=== PATIENT | female | born 1980 | race Caucasian/White ===

== ENCOUNTER 2016-01-11 11:15 | Outpatient (RCR) | payer BC ==
[2016-01-04 11:28] VITALS: BP_SYST 144; BP_SYST 145; BP_DIAS 92; BP_DIAS 95
[2016-01-04 11:54] VITALS: BP 149/83
[2016-01-04 12:09] VITALS: BP 156/87
[2016-01-04 12:24] VITALS: BP 166/87
[2016-01-04 12:30] VITALS: BP 145/92
--- NOTE | 2016-01-04 14:43 | Diagnostic Imaging Report ---
OB ultrasound. Biophysical profile. INDICATION: Chronic hypertension. FINDINGS: heart rate is 119 beats per minute. Total SHANE is 10.1 cm. The position is cephalic. The placenta is anterior with no placenta previa. Biophysical profile parameters are all within normal limits. IMPRESSION: Biophysical profile score is 8 out of 8. Dictated by: Dictated on workstation # [id number]
[2016-01-08 12:20] VITALS: BP 146/80
--- NOTE | 2016-01-08 12:56 | Diagnostic Imaging Report ---
OB ultrasound/biophysical profile. INDICATION: Preeclampsia. FINDINGS: heart rate is 167 beats per minute. position is cephalic. Amniotic fluid index is 4.5 cm compared to 10.1 cm on 01/04/16. Biophysical profile parameters are within normal limits. The placenta is anterior with no placenta previa. IMPRESSION: Biophysical profile score is 8/8. There is, however, interval decrease in amniotic fluid index to 4.5 cm at this time, oligohydramnios. The findings were given to OB nurse taking care of the patient by lead nuclear medicine technologist Katt. Dictated by: Dictated on workstation # [id number]
[~2016-01-11] VITALS: Ht 165.1 cm; Wt 113.4 kg
[2016-01-11] VITALS (9 sets, daily range): BP systolic 131–181; BP diastolic 72–99
[~2016-01-11 11:15] MED LIST: Ibuprofen PO; MULT-501 PO
[2016-01-11 12:52] LABS: BASOPHILS % (AUTO) 0 % (0-10); EOSINOPHILS # (AUTO) 0.1 10^3/uL (0.0-0.3); EOSINOPHILS % (AUTO) 1 % (0-10); LYMPHOCYTES # (AUTO) 1.3 X 10^3 (1.0-4.0); LYMPHOCYTES % (AUTO) 16 % (12-44); MEAN CORPUSCULAR HEMOGLOBIN 31 PG (25-34); MEAN CORPUSCULAR HGB CONC 34 G/DL (32-36); MEAN CORPUSCULAR VOLUME 93 FL (80-99); MEAN PLATELET VOLUME 10.4 FL (7.4-10.4); MONOCYTES # (AUTO) 0.7 X 10^3 (0.0-1.0); MONOCYTES % (AUTO) 9 % (0-12); NEUTROPHILS % (AUTO) 74 % (42-75); PLATELET COUNT 224 10^3/uL (130-400); RED BLOOD COUNT 3.51 10^6/uL (4.35-5.85); RED CELL DISTRIBUTION WIDTH 14.6 % (10.0-14.5)
[2016-01-11 13:10] LABS: ALANINE AMINOTRANSFERASE 15 U/L (0-55); ALBUMIN 3.1 G/DL (3.2-4.5); ANION GAP 7 MMOL/L (5-14); ASPARTATE AMINO TRANSFERASE 19 U/L (5-34); BILIRUBIN,TOTAL 0.8 MG/DL (0.1-1.0); BLOOD UREA NITROGEN 9 MG/DL (7-18); BUN/CREATININE RATIO 15; CALCIUM 8.9 MG/DL (8.5-10.1); CARBON DIOXIDE 20 MMOL/L (21-32); CHLORIDE 109 MMOL/L (98-107); CREATININE SERUM 0.62 MG/DL (0.60-1.30); GFR ESTIMATED > 60; GLUCOSE 85 MG/DL (70-105); LACTATE DEHYDROGENASE 163 U/L (125-220); POTASSIUM 3.8 MMOL/L (3.6-5.0); SODIUM 136 MMOL/L (135-145); TOTAL PROTEIN 5.7 G/DL (6.4-8.2); URIC ACID 5.5 MG/DL (2.6-7.2)
--- NOTE | 2016-01-11 15:01 | Diagnostic Imaging Report ---
OB ultrasound. INDICATION: Biophysical profile. FINDINGS: heart rate is 140 beats minute. The presentation is cephalic. Total SHANE is 7 cm. The placenta is anterior with no placenta previa. The cervix appears long and closed. Biophysical profile parameters are within normal limits. IMPRESSION: Total biophysical profile of 8 out of 8. Amniotic fluid index is near the lower limits of normal at 7 cm. Dictated by: Dictated on workstation # [id number]
[2016-01-14 15:32] VITALS: BP 183/102
[2016-01-14 15:40] VITALS: BP 148/88
[2016-01-14 15:50] VITALS: BP 152/92
[2016-01-14 16:00] VITALS: BP 137/81
[2016-01-14 16:25] VITALS: BP 131/75
== END 2016-04-03 | disposition home or self-care (01) ==
LOC: RAD 11:15
PROVIDERS: ATTEND Family Medicine
DX: O10.913 Unspecified pre-existing hypertension complicating pregnancy, third trimester (principal); Z3A.35 35 weeks gestation of pregnancy
CPT/HCPCS: 36415; 59025; 76819; 80053; 83615; 84550; 85025

== ENCOUNTER → 2020-07-23 | Outpatient (CLI) | payer OTHER ==
--- NOTE | 2020-07-24 09:34 | Diagnostic Imaging Report ---
INDICATION: Routine screening. No prior mammograms are available for comparison. 2-D and 3-D bilateral screening mammography was performed with CAD. Scattered fibroglandular densities are identified bilaterally. No mass or malignant-appearing microcalcifications are seen. Axillae are unremarkable. IMPRESSION: BI-RADS Category 1 No mammographic features suspicious for malignancy are identified. ACR BI-RADS Category 1: Negative. Result letter will be mailed to the patient. Note: At least 10% of breast cancer is not imaged by mammography. Dictated by: Dictated on workstation # [id number]
== END ==
LOC: RAD 14:42
PROVIDERS: ATTEND Nurse Practitioner Family
DX: Z12.31 Encounter for screening mammogram for malignant neoplasm of breast (principal)
CPT/HCPCS: 77063; 77067

== ENCOUNTER 2021-10-25 15:42 | Inpatient (IN) | payer MEDICAID ==
[2021-10-25] VITALS (49 sets, daily range): BP systolic 135–192; BP diastolic 69–119
[~2021-10-25] VITALS: Ht 164 cm; Wt 119.8 kg
[2021-10-25 16:26] LABS: HEMATOCRIT 31 % (35-52); HEMOGLOBIN 10.7 g/dL (11.5-16.0); MEAN CORPUSCULAR HEMOGLOBIN 31 pg (25-34); MEAN CORPUSCULAR HGB CONC 34 g/dL (32-36); MEAN CORPUSCULAR VOLUME 90 fL (80-99); MEAN PLATELET VOLUME 9.7 fL (9.0-12.2); PLATELET COUNT 268 10^3/uL (130-400); WHITE BLOOD COUNT 9.5 10^3/uL (4.3-11.0)
[2021-10-25 16:37] LABS: ALBUMIN 3.3 GM/DL (3.2-4.5); POTASSIUM 4.1 MMOL/L (3.6-5.0)
[2021-10-25 16:39] LABS: CALCIUM 9.5 MG/DL (8.5-10.1)
[2021-10-25 16:40] LABS: TOTAL PROTEIN 6.3 GM/DL (6.4-8.2)
[2021-10-25 16:42] LABS: BILIRUBIN,TOTAL 0.8 MG/DL (0.1-1.0)
[2021-10-25 16:43] LABS: CREATININE SERUM 0.75 MG/DL (0.60-1.30)
[2021-10-25 16:46] LABS: URIC ACID 7.3 MG/DL (2.6-7.2)
[2021-10-25] MEDS ORDERED: BETAMETHASONE ACE/NA PHOS 6 MG/ML (CELESTONE SOLUSPAN) ONE (18:13)
[2021-10-25] MEDS ORDERED: TERBUTALINE INJ 1 MG/ML (BRETHINE) AMP SC PRN (18:15)
[2021-10-25] MEDS ORDERED: hydrALAZINE (APESOLINE) 20 MG/ML VIAL IV PRN (18:15)
[2021-10-25] MEDS ORDERED: CALCIUM GLUC. 10% 4.65 MEQ/10 ML VIAL IV PRN (18:15)
[2021-10-25] MEDS ORDERED: MAGNESIUM 4 GM/100 ML IVPB 100 ML IV ONE (18:15)
[2021-10-25] MEDS ORDERED: BETAMETHASONE ACE/NA PHOS 6 MG/ML (CELESTONE SOLUSPAN) IM SCH (18:30)
--- NOTE | 2021-10-25 18:38 | History & Physical-OB ---
OB - Chief Complaint & HPI Date/Time Date of Admission: Date of Admission: 10/25/2021 Date seen by a Provider: Oct 25, 2021 Time Seen by a Provider: 17:30 Chief Complaint/History OB-Reason for Admission/Chief: Obstetrical Complication Hx : 3 Hx Para: 2 Expected Date of Delivery: Nov 29, 2021 Gestational Age in Weeks: 35 Gestational Age in Days: 0 Indication for induction: medical complication Other reason for admission: 41 yo at 35w0d with complicated by chronic hypertension, loss of twin in first trimester, positive antibody screen at low titer, untypeable being followed q4 weeks, previous child with craniosynostosis and advanced maternal age (declined genetic screening) 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 At her Ob visit at the end of last week, she had new onset swelling so preeclampsia labs were rechecked and results noted today showed uric acid slightly elevated and urine protein/creatinine ratio up to 0.6 (from 0.2 09/21/21). Pt called and notified of results by nurse and when asking about symptoms, she did admit headache, nausea and swelling and she checked her BP at home and it was 169/105, so she was directed to the hospital. Discussed with on-call for MFM and they recommended proceeding with delivery given severe level blood pressure and new proteinuria. On arrival to the hospital she stated she has persisted with headache, denies vision changes or upper abdominal pain, and she notes she had swelling of hands, feet and face yesterday that is not quite as bad today. Her repeat labs today showed persistent mild uric acid elevation and urine pr/cr now above 1. Her initial blood pressure on arrival was above 160 systolic, but down to below 160 on repeat. She continued to have intermittent blood pressure above 160 systolic that have not persisted more than 15 minutes so she has not yet received IV treatment. She had her labetalol am dose, normally takes her nifedipine in the evening with her evening labetalol dose and has not had those yet. Fetus was breech on last few BPPs, however bedside US today shows vertex. She had preeclampsia with both prior pregnancies, induced at 38 and then 37 weeks with those, has been on aspirin for preeclampsia prevention in this . History of Labs O neg, antibody POSITIVE but at low level and untypeable, RPR reactive but TPPA neg, HIV/HepB neg. GC/chlamydia neg. RI. 1 hour glucola neg, repeat 1 hr 10/22 negative again done due to LGA on recent US. Allergies and Home Medications Allergies Coded Allergies: No Known Drug Allergies (Unverified , 09/11/13) Patient Home Medication List Home Medication List Reviewed: Yes Aspirin (Low Dose Aspirin EC) 81 Mg Tablet.dr, 1 TAB PO DAILY, (Reported) Entered as Reported by: JODY VALERA on 10/25/211839 Last Action: New Order Labetalol HCl (Labetalol HCl) 300 Mg Tablet, 2 TAB PO BID, (Reported) Entered as Reported by: JODY VALERA on 10/25/211839 Last Action: New Order Multivitamins (Children's Chewable Complete) 1 Each Tab.chew, 2 EACH PO DAILY, (Reported) Entered as Reported by: YAIR SAMUELS on 09/11/13 170 Nifedipine (Nifedipine ER) 30 Mg Tab.er.24, 1 TAB PO DAILY, (Reported) Entered as Reported by: JODY VALERA on 10/25/211839 Last Action: New Order OB - History Hx of Present Care: Yes Obstetrical Complications: Pre-eclampsia Medical Complications: Cardiovascular (HTN) Information Induced Hypertension: Yes (chronic HTN) Maternal Gestational Diabetes: No Hemorrhage: No Obstetrical History Hx : 3 Hx Para: 2 Hx # Term Pregnancies: 2 Hx # Pregnancies: 0 Number of Living Children: 0 Hx Multiple Gestation: Yes (twin gestation with current with loss of one twin prior to 8 wk) Hx Ectopic : No Hx Stillbirth: No Hx Complication: Yes Hx Induced Hypertens: Yes Hx Maternal Gestational Diabet: No Hx Hemorrhage: No Delivery History Hx Dystocia: No Hx Forceps Assisted Delivery: No Hx Vacuum Extraction Assisted: No Hx Placenta Abnormality: No Hx Distress: No Hx Large For Gestational Age I: No Hx Small for Gestational Age I: No Hx Section: No Hx Vaginal Delivery Post C-Sec: No Hx Blood Disorders: No Adverse Rxn to Tranfusion: No Patient Past Medical History PMHx: Chronic hypertension Rh negative Sleep apnea Social History/Family History Alcohol Use: Denies Use Recreational Drug Use: No Smoking Cessation: Never smoker Immunizations Tetanus Booster (TDap): Less than 5yrs Rubella: immune RPR/VDRL: Negative GBS Status: Negative HBsAG: Negative OB - Admission Exam Physical Exam Vitals: Vital Signs 10/25/21 17:22 Temp 36.1 Pulse 82 Resp 18 Pulse Ox 98 O2 Delivery Room Air HEENT: NCAT Heart: Rhythm Normal Lungs: Clear Abdomen: Non tender Extremities: Edema Reflexes: Normal Cervical Dilatation: 1cm Effacement: 0% Station: -3 Membranes: Intact Heart Rate: 120's Decelerations: No Decelerations Short Term Variability: Present Contractions on Admission: None Weber Scoring Tool (Modified) Dilation (cm): 1-2cm (1) Effacement (%): 0-30% (0) Descent/Station: -3 (0) Cervix Consistency: Soft (2) Cervix Position: Middle/Mid-Position (1) Add 1 point for: Pre-eclampsia (1), Each previous vaginal delivery (1) (2) Weber Score: 6 Labs Laboratory Tests Test 10/25/21 15:45 10/25/21 16:15 Range/Units Urine Protein 46 H 6-12 MG/DL Urine Creatinine 41 30-125 MG/DL Urine Protein/Creatinine Ratio 1.12 White Blood Count 9.5 4.3-11.0 10^3/uL Red Blood Count 3.50 L 3.80-5.11 10^6/uL Hemoglobin 10.7 L 11.5-16.0 g/dL Hematocrit 31 L 35-52 % Mean Corpuscular Volume 90 80-99 fL Mean Corpuscular Hemoglobin 31 25-34 pg Mean Corpuscular Hemoglobin Concent 34 32-36 g/dL Red Cell Distribution Width 14.5 10.0-14.5 % Platelet Count 268 130-400 10^3/uL Mean Platelet Volume 9.7 9.0-12.2 fL Sodium Level 136 135-145 MMOL/L Potassium Level 4.1 3.6-5.0 MMOL/L Chloride Level 106 98-107 MMOL/L Carbon Dioxide Level 18 L 21-32 MMOL/L Anion Gap 12 5-14 MMOL/L Blood Urea Nitrogen 13 7-18 MG/DL Creatinine 0.75 0.60-1.30 MG/DL Estimat Glomerular Filtration Rate 103 BUN/Creatinine Ratio 17 Glucose Level 83 70-105 MG/DL Uric Acid 7.3 H 2.6-7.2 MG/DL Calcium Level 9.5 8.5-10.1 MG/DL Corrected Calcium 10.1 8.5-10.1 MG/DL Total Bilirubin 0.8 0.1-1.0 MG/DL Aspartate Amino Transf (AST/SGOT) 21 5-34 U/L Alanine Aminotransferase (ALT/SGPT) 16 0-55 U/L Alkaline Phosphatase 112 40-136 U/L Lactate Dehydrogenase 145 125-220 U/L Total Protein 6.3 L 6.4-8.2 GM/DL Albumin 3.3 3.2-4.5 GM/DL OB - Assessment/Plan/Diagnosis Assessment Admission Dx Preeclampsia with severe features Admission Status: Inpatient Order (span 2 midnights) Reason for Inpatient Admission: Induction, labor, delivery and course Plan Problems: (1) Severe preeclampsia Assessment & Plan: Induction of labor with cytotec cervical ripening, magnesium ordered for seizure prophylais, labetalol IV as needed with hydralazine additionally ordered if needed for severe level HTN. Severe features due to HTN, but has normal renal function, platelets and LFTs. Qualifiers: Qualified Codes: O14.13 - Severe pre-eclampsia, third trimester (2) 35 weeks gestation of Assessment & Plan: Betamethasone now, will repeat in 24 if not yet delivered. Ampicillin for GBS unknown status and . (3) Chronic hypertension affecting (4) Rh negative status during Assessment & Plan: With positive but untypeable and low titer antibody repeatedly outpatient, repeat type and screen on admit. (5) Advanced maternal age (AMA) in Assessment & Plan: Declined genetic screening in JODY VALERA MD Oct 25, 2021 18:38
[2021-10-25] MEDS ORDERED: NIFE-25 PO (18:40)
[2021-10-25] MEDS ORDERED: ASPI81TA16 PO (18:40)
[2021-10-25] MEDS ORDERED: LABE300T2 PO (18:40)
[2021-10-25] MEDS ORDERED: NS IV 1000 ML 1,000 ML ONE (19:53)
[2021-10-25] MEDS: NS IV 1000 ML 1,000 ML IV SCH (20:03)
[2021-10-25] MEDS: LABETALOL HCL 100 MG/20 ML VIAL IV PRN ×3 (20:04→20:47)
[2021-10-25] MEDS: MAGNESIUM SULFATE DRIP 500 ML IV SCH (20:43)
[2021-10-25] MEDS ORDERED: LABETALOL HCL 20 MG/4 ML VIAL ONE ×2 (20:43→21:09)
[2021-10-25] MEDS ORDERED: LABETALOL HCL 20 MG/4 ML VIAL IV ONE ×2 (21:00→21:45)
[2021-10-25] MEDS ORDERED: fentaNYL 2 mcg/ml BUPIVA 0.125 100 ML ONE (23:07)
[2021-10-25] MEDS ORDERED: fentaNYL INJ 100 MCG/2 ML AMP ONE (23:12)
[2021-10-25] MEDS ORDERED: BUPIVACAINE 0.25% 30 ML (SENSORCAINE) VIAL ONE (23:12)
[2021-10-25] MEDS ORDERED: ONDANSETRON 4 MG/2 ML (SDV) Z0FRAN IV PRN (23:45)
[2021-10-25] MEDS ORDERED: LACTATED RINGERS 1,000 ML IV ONE ×2 (23:45)
[2021-10-25] MEDS ORDERED: fentaNYL 2 mcg/ml BUPIVA 0.125 100 ML EPI SCH (23:45)
[2021-10-25] MEDS ORDERED: NALOXONE 0.4 MG/ML 1 ML (NARCAN) VIAL IV PRN (23:45)
[2021-10-25] MEDS ORDERED: fentaNYL INJ 100 MCG/2 ML AMP INJ ONE (23:45)
[2021-10-26] VITALS (62 sets, daily range): BP systolic 115–194; BP diastolic 69–101
[2021-10-26] MEDS ORDERED: AMPICILLIN FOR IV USE 2,000 MG in NS (IVPB) 50 ML IV ONE (02:44)
[2021-10-26] MEDS ORDERED: hydrALAZINE (APESOLINE) 20 MG/ML VIAL IV ONE (02:55)
[2021-10-26] MEDS ORDERED: hydrALAZINE (APESOLINE) 20 MG/ML VIAL ONE (03:13)
[2021-10-26] MEDS ORDERED: FAMOTIDINE 20MG/2ML IV (PEPCID) ONE (06:09)
[2021-10-26] MEDS ORDERED: METOCLOPRAMIDE INJ 10 MG/2 ML (REGLAN) ONE (06:09)
[2021-10-26] MEDS ORDERED: CITRIC ACID/SOB CIT (BICITRA) 30 ML UDC ONE (06:09)
[2021-10-26] MEDS ORDERED: ceFAZolin INJECTION 2,000 MG in NS (IVPB) 50 ML IV SCH (06:15)
--- NOTE | 2021-10-26 06:17 | Labor Progress Note ---
Labor Progress Note Labor Progress Note Date Seen by Provider: Oct 26, 2021 Time Seen by Provider: 05:55 Subjective: Pt is nauseated but denies other concerns. Objective: Cervical exam: 3 Consistency: soft Position: mid Presentation: vertex heart tones: 105 beats per minute, moderate variability, no decelerations Tocometer: 1-2 ctx/10 minutes Assessment/Plan: Magdalena Pressley is a 41 /Para 3 / 2,Gestational Age (wks)35+1 here for IOL for preeclampsia with severe features. After her first dose of cytotec, at next check presenting part was not palpable and bedside US showed transverse position, so no further cytotec was given and plan for this morning. Since admission she has received 220 mg IV labetalol for systolic blood pressures above 160 and during the night she did require 2 doses of hydralazine for systolic blood pressures greater than 160. heart rate baseline has been around 100 to 110 for a significant portion of the night but has continued to have variability and no decelerations, suspect this may be related to her labetalol. At this time, US shows vertex again, however, given the unstable lie (fetus was breech last several weeks, vertex last night, then transverse and now vertex again) plan to proceed with this morning. CEFM Anesthesia: Epidural Discussed with Dr. Diaz Product Scientist on-call and OR team called. Vitals - Labs Vital Signs - I&O Vital Signs Date Time Temp Pulse Resp B/P (MAP) Pulse Ox O2 Delivery O2 Flow Rate FiO2 10/26/21 05:53 Room Air 10/26/21 05:10 88 140/85 (103) Room Air 10/26/21 05:07 94 20 138/88 (105) 10/26/21 04:57 36.6 10/26/21 04:56 94 138/88 (105) Room Air 10/26/21 04:41 93 135/80 (98) Room Air 10/26/21 04:27 97 145/87 (106) 96 Room Air 10/26/21 04:15 98 22 147/85 (105) 10/26/21 04:11 98 147/85 (105) Room Air 10/26/21 03:56 99 144/84 (104) Room Air 10/26/21 03:43 99 142/75 (97) 97 Room Air 10/26/21 03:40 100 154/87 (109) 98 Room Air 10/26/21 03:26 88 159/83 (108) 99 Room Air 10/26/21 03:15 87 20 151/81 (104) 10/26/21 03:11 76 151/81 (104) Non Rebreather 15.00 10/26/21 03:07 87 168/88 (114) 100 Non Rebreather 15.00 10/26/21 02:55 77 171/91 (117) Non Rebreather 15.00 10/26/21 02:53 91 172/91 (118) 100 Non Rebreather 15.00 10/26/21 02:41 67 188/95 (126) Non Rebreather 15.00 10/26/21 02:37 66 192/101 (131) 100 Non Rebreather 15.00 10/26/21 02:28 71 194/98 (130) 100 Non Rebreather 15.00 10/26/21 02:22 79 191/97 (128) 100 Non Rebreather 15.00 10/26/21 02:15 75 18 186/96 (126) 10/26/21 02:11 75 186/96 (126) 100 Non Rebreather 15.00 10/26/21 01:54 85 179/96 (123) 95 Non Rebreather 15.00 10/26/21 01:41 79 175/94 (121) 94 Room Air 10/26/21 01:26 75 176/94 (121) Room Air 10/26/21 01:25 76 175/95 (121) Room Air 10/26/21 01:15 72 18 185/91 (122) 10/26/21 01:11 72 185/91 (122) 96 Room Air 10/26/21 01:00 71 10/26/21 00:55 74 165/97 (119) 95 Room Air 10/26/21 00:42 64 133/69 (90) Room Air 10/26/21 00:27 70 121/69 (86) Room Air 10/26/21 00:15 70 121/69 (86) 10/26/21 00:10 74 168/90 (116) 97 Room Air 10/26/21 00:01 74 161/81 (107) Room Air 10/25/21 23:54 74 172/84 (113) 96 Room Air 10/25/21 23:51 72 168/93 (118) 94 Room Air 10/25/21 23:49 76 166/93 (117) 98 Room Air 10/25/21 23:45 75 172/98 (122) Room Air 10/25/21 23:42 77 169/92 (117) 97 Room Air 10/25/21 23:39 85 166/110 (128) Room Air 10/25/21 23:36 80 175/102 (126) Room Air 10/25/21 23:34 81 165/96 (119) 98 Room Air 10/25/21 23:31 81 167/98 (121) Room Air 10/25/21 23:28 79 171/94 (119) 98 Room Air 10/25/21 23:24 77 168/96 (120) Room Air 10/25/21 23:21 77 187/97 (127) 98 Room Air 10/25/21 23:19 84 186/93 (124) 98 Room Air 10/25/21 23:15 84 20 186/93 (124) 10/25/21 23:07 74 157/90 (112) 97 Room Air 10/25/21 22:52 80 163/93 (116) 97 Room Air 10/25/21 22:37 81 161/88 (112) 94 Room Air 10/25/21 22:27 80 166/89 (114) 96 Room Air 10/25/21 22:22 79 164/85 (111) 97 Room Air 10/25/21 22:15 78 20 163/82 (109) 10/25/21 22:14 78 163/82 (109) 94 Room Air 10/25/21 21:48 36.3 79 18 157/74 (101) 94 Room Air 10/25/21 21:44 78 139/69 (92) 94 Room Air 10/25/21 21:40 74 20 164/81 (108) 92 Room Air 10/25/21 21:31 81 10/25/21 21:15 87 18 164/101 (122) 10/25/21 21:05 87 164/101 (122) 97 Room Air 10/25/21 20:56 79 167/83 (111) 97 Room Air 10/25/21 20:52 171/94 (119) 10/25/21 20:50 80 98 Room Air 10/25/21 20:34 80 184/95 (124) 98 Room Air 10/25/21 20:32 77 171/93 (119) 94 Room Air 10/25/21 20:30 85 176/92 (120) 95 Room Air 10/25/21 20:20 77 18 185/98 (127) 96 Room Air 10/25/21 20:16 35.4 69 22 178/94 (122) 98 Room Air 10/25/21 20:15 69 22 178/94 (122) 10/25/21 20:09 72 20 192/100 (130) 97 Room Air 10/25/21 20:03 68 191/98 (129) 10/25/21 19:39 71 18 184/95 (124) 10/25/21 19:04 77 16 162/93 (116) 10/25/21 17:32 74 18 170/87 (114) 10/25/21 17:22 36.1 82 18 98 Room Air 10/25/21 17:18 65 18 158/119 (132) 10/25/21 17:02 72 18 139/84 (102) 10/25/21 16:50 76 18 150/89 (109) 10/25/21 16:33 78 18 135/79 (97) 10/25/21 16:20 78 18 163/90 (114) 10/25/21 16:02 75 18 149/77 (101) 10/25/21 15:51 85 18 160/80 (106) 10/25/21 15:45 36.1 82 18 178/95 (122) 97 I & O 10/26/21 07:00 Intake Total 664.8 ml Balance 664.8 ml Labs Laboratory Tests 10/25/21 15:45: Urine Protein 46H, Urine Creatinine 41, Urine Protein/Creatinine Ratio 1.12 10/25/21 16:15: White Blood Count 9.5, Red Blood Count 3.50L, Hemoglobin 10.7L, Hematocrit 31L, Mean Corpuscular Volume 90, Mean Corpuscular Hemoglobin 31, Mean Corpuscular Hem oglobin Concent 34, Red Cell Distribution Width 14.5, Platelet Count 268, Mean Platelet Volume 9.7, Sodium Level 136, Potassium Level 4.1, Chloride Level 106, Carbon Dioxide Level 18L, Anion Gap 12, Blood Urea Nitrogen 13, Creatinine 0.75, Estimat Glomerular Filtration Rate 103, BUN/Creatinine Ratio 17, Glucose Level 83, Uric Acid 7.3H, Calcium Level 9.5, Corrected Calcium 10.1, Total Bilirubin 0.8, Aspartate Amino Transf (AST/SGOT) 21, Alanine Aminotransferase (ALT/SGPT) 16, Alkaline Phosphatase 112, Lactate Dehydrogenase 145, Total Protein 6.3L, Albumin 3.3 JODY VALERA MD Oct 26, 2021 06:17
[2021-10-26] MEDS: METOCLOPRAMIDE 10 MG (REGLAN) TAB PO SCH ×3 (06:20→18:57)
[2021-10-26] MEDS: MAGNESIUM SULFATE DRIP 500 ML IV SCH ×2 (06:31→17:59)
[2021-10-26] MEDS ORDERED: AMPICILLIN FOR IV USE 1,000 MG in NS (IVPB) 50 ML IV SCH (06:45)
[2021-10-26] MEDS ORDERED: TETANUS,DIPTH,PERTUSS P/F (BOOSTRIX) 0.5 ML VIAL IM SCH (07:00)
[2021-10-26] MEDS ORDERED: ONDANSETRON 4 MG/2 ML (SDV) Z0FRAN IVP PRN ×2 (07:00→08:15)
[2021-10-26] MEDS ORDERED: hydrALAZINE (APESOLINE) 20 MG/ML VIAL IV PRN (07:00)
[2021-10-26] MEDS ORDERED: NALOXONE 0.4 MG/ML 1 ML (NARCAN) VIAL IV PRN (07:00)
[2021-10-26] MEDS ORDERED: MEASLES,MUMPS,RUBELLA 1 EA INJ SC SCH (07:00)
[2021-10-26] MEDS ORDERED: OXYTOCIN PRE-MIX DRIP 500 ML IV SCH (07:00)
--- NOTE | 2021-10-26 07:01 | Discharge Inst-Women's Service ---
Discharge Inst-Women's Serv Depart Medication/Instructions New, Converted or Re-Newed RX: Transmitted to Pharmacy Final Diagnosis POD 2 PLTCS Problems Reviewed?: Yes Consults/Follow Up Additional Follow Up: Yes Orders/Referrals Dr. Diaz in 7-[address] Willis in 6 weeks Activity Activity: Activity as Tolerated Driving Instructions: No Driving for 1 Week NO SMOKING: NO SMOKING Nothing Inside Vagina: No Douching, No [place], No Tampons Diet Discharge Diet: No Restrictions Symptoms to Report to : Bleeding Excessive, Pain Increased, Fever Over 101 Degrees F, Vaginal Bleeding Increase, Questions/Concerns For Any Problems or Questions: Contact Your Physician Skin/Wound Care Infection Signs and Symptoms: Increased Redness, Foul Odor of Wound, Increased Drainage, Skin Itchy or Has a Rash, Increased Swelling, Temperature Above 101 F Operative Area Clean and Dry: Keep Incision Clean/Dry Stitches/[place]efonso/Dermabond: Dermabond, Care of Stitches Bathing Instructions: MASOUD Concepcion DO Oct 26, 2021 07:01
[2021-10-26] MEDS ORDERED: ACHD5005 PO (07:03)
[2021-10-26] MEDS ORDERED: DOCU100C37 PO (07:03)
[2021-10-26] MEDS ORDERED: IBUP-844 PO (07:03)
[2021-10-26] MEDS ORDERED: OXYTOCIN PRE-MIX DRIP 1,000 ML IV ONE (07:05)
[2021-10-26] MEDS ORDERED: LIDOCAINE PF 2% 5 ML (XYLOCAINE) VIAL ONE (07:06)
[2021-10-26] MEDS ORDERED: BUPIVACAINE 0.25% 30 ML (SENSORCAINE) VIAL ONE (07:07)
[2021-10-26] MEDS ORDERED: FAMOTIDINE 20MG/2ML IV (PEPCID) IV ONE (07:15)
[2021-10-26] MEDS ORDERED: CITRIC ACID/SOB CIT (BICITRA) 30 ML UDC PO ONE (07:15)
--- NOTE | 2021-10-26 07:17 | Consultation ---
History of Present Illness History of Present Illness Patient Consulted On(vishal/time) 10/26/21 07:15 Date Seen by Provider: Oct 26, 2021 Time Seen by Provider: 06:30 History of Present Illness Severe PreE, 35 week IUP Allergies and Home Medications Allergies Coded Allergies: No Known Drug Allergies (Unverified , 09/11/13) Patient Home Medication List Home Medication List Reviewed: Yes Aspirin (Low Dose Aspirin EC) 81 Mg Tablet.dr, 1 TAB PO DAILY, (Reported) Entered as Reported by: JODY VALERA on 10/25/211839 Last Action: New Order Docusate Sodium (Docusate Sodium) 100 Mg Capsule, 100 MG PO BID PRN for CONSTIPATION-1ST LINE Prescribed by: MASOUD MCGEE on 10/26/21702 Hydrocodone Bit/Acetaminophen (HYDROcodone/APAP 5 MG/325 MG TAB) 1 Tab Tab, 1-2 EA PO Q6HR PRN for PAIN-MODERATE (5-7) Prescribed by: MASOUD MCGEE on 10/26/21702 Ibuprofen (Ibu) 600 Mg Tablet, 600 MG PO Q6H Prescribed by: MASOUD MCGEE on 10/26/21702 Labetalol HCl (Labetalol HCl) 300 Mg Tablet, 2 TAB PO BID, (Reported) Entered as Reported by: JODY VALERA on 10/25/211839 Last Action: New Order Multivitamins (Children's Chewable Complete) 1 Each Tab.chew, 2 EACH PO DAILY, (Reported) Entered as Reported by: YAIR SAMUELS on 09/11/13 1709 Nifedipine (Nifedipine ER) 30 Mg Tab.er.24, 1 TAB PO DAILY, (Reported) Entered as Reported by: JODY VALERA on 10/25/211839 Last Action: New Order Past Hcpwelg-Comlss-Nubfpb Hx Patient Social History Tobacco Use?: No Smoking Status: Never a Smoker Smokeless Tobacco Frequency: Never a User Use of E-Cig and/or Vaping dev: No Substance use?: No Alcohol Use?: No Pt feels they are or have been: No Immunizations Up To Date Tetanus Booster (TDap): Less than 5yrs PED Vaccines UTD: Yes Influenza Vaccine Up-to-Date: No; Not Current Seasonal Allergies Seasonal Allergies: No Past Medical History Surgery/Hospitalization HX: None Expected Date of Delivery: Nov 29, 2021 Hx : 3 Hx Para: 2 Reproductive Disorders: No Female Reproductive Disorders: Denies Sexually Transmitted Disease: No HIV/AIDS: No Loss of Vision: Denies Hearing Impairment: Denies Sleep Difficulties Adverse Reaction/Blood Tranf: No Family Medical History Cancer 19 MOTHER Cardiovascular disease 19 FATHER Diabetes mellitus G8 BROTHER Grandparents (Maternal Grandmother) FH polycystic kidney 19 MOTHER FH: lupus 19 MOTHER Family history: Arthritis 19 MOTHER Family history: Diabetes mellitus 19 FATHER 19 MOTHER Family history: Hypertension 19 MOTHER Hypertension 19 MOTHER G8 BROTHER Kidney disease 19 MOTHER Physical Exam-General Problems Physical Exam Vital Signs Vital Signs - First Documented 10/25/21 10/25/21 10/26/21 15:45 17:22 01:54 Temp 36.1 Pulse 82 Resp 18 B/P (MAP) 178/95 (122) Pulse Ox 97 O2 Delivery Room Air O2 Flow Rate 15.00 Capillary Refill : Less Than 3 Seconds General Appearance: WD/WN, mild distress HEENT: PERRL/EOMI, normal ENT inspection Assessment/Plan Assessment/Plan Admission Diagnosis/Plan 41 yo @ 35 weeks Severe PreE Unstable lie GBS unknown Morbid Obesity >40 BMI P: PLTCS discussed with patient. Indication due to severe PreE, and unstable lie. Admission Status: Inpatient Order (span 2 midnights) MASOUD MCGEE DO Oct 26, 2021 07:17
[2021-10-26] MEDS ORDERED: fentaNYL INJ 100 MCG/2 ML AMP ONE (07:27)
[2021-10-26] MEDS ORDERED: PHENYLEPHRINE 100 MCG/ML 10 ML (ANESTHESIA) SYR ONE (07:36)
[2021-10-26] MEDS ORDERED: KETOROLAC 30 MG/ML VIAL ONE (07:48)
[2021-10-26] MEDS ORDERED: morphine INJ 10 MG/ML 1ML (SYR OR VIAL) IVP ONE (08:15)
[2021-10-26] MEDS: DOCUSATE SODIUM 100 MG (COLACE) CAP PO SCH ×2 (09:21→21:22)
[2021-10-26] MEDS: LABETALOL 200 MG (NORMODYNE) TAB PO SCH ×2 (09:21→21:23)
--- NOTE | 2021-10-26 11:02 | OPERATIVE REPORT ---
DATE OF SERVICE: PREOPERATIVE DIAGNOSES: 1. A 41-year-old G3, P2 at 35 weeks and 1 day gestation. 2. Severe preeclampsia. 3. Unstable lie. 4. Morbid obesity. POSTOPERATIVE DIAGNOSES: 1. A 41-year-old G3, P2 at 35 weeks and 1 day gestation. 2. Severe preeclampsia. 3. Unstable lie. 4. Morbid obesity. PROCEDURE PERFORMED: Primary low transverse section. SURGEON: Sukhi Mcgee DO. ANESTHESIA: Spinal. ESTIMATED BLOOD LOSS: 600 mL. URINE OUTPUT: 30 mL clear at the end of the procedure. FLUIDS: 1200 mL of lactated Ringer's solution. FINDINGS: A live male infant, weight 6 pounds 1 ounce, Apgars pending. Grossly normal appearing uterus, bilateral fallopian tubes, and ovaries. SPECIMEN SENT: Placenta. INDICATIONS FOR PROCEDURE: This 41-year-old female, who is a patient that was admitted by Dr. Willis at the [facility] for severe preeclampsia and induction of labor at 35 weeks due to worsening blood pressures. She was given IV antihypertensives overnight and induced using Cytotec. There was a change in position twice noted on ultrasound going from transverse to vertex to transverse. I was consulted for on delivery as this did necessitate delivery. I discussed with the patient after the consultation, risk of procedure including risk of bleeding, infection, damage to surrounding structures including, but not limited to bowel, bladder, ureter, kidneys, possible need for reoperation, postoperative complications that may occur, risk from anesthesia, recovery timeframe and even . After everything was discussed with the patient in detail, consent was obtained in the preoperative area and the patient was taken to the operating room. OPERATIVE REPORT IN DETAIL: Once in the operating room, spinal analgesia was found to be adequate. She was placed in supine position with leftward tilt, prepped and draped in a normal sterile fashion. Timeout was performed. Anesthesia was tested. I made a Pfannenstiel skin incision with a knife and carried down to underlying fascia using Bovie cautery. The fascial incision extended laterally using Bovie cautery. Superior aspect of the fascial incision was then grasped with Dave clamps, tented up and dissected off the underlying rectus muscle. Inferior aspect of fascial incision was then grasped with Dave clamps, tented up and dissected off the underlying rectus muscle. Rectus muscles were dissected down the midline, which exposed the peritoneum, which I entered using blunt traction. Jerrell ring retractor was placed in the peritoneal incision, which offers excellent lateral sidewall retraction. I identified the lower uterine segment, which was found to be thinned out. I made a low transverse incision to the vesicouterine peritoneum and bluntly dissected off the lower uterine segment, creating a bladder flap. I then proceeded with my myotomy until membranes were visualized, at which point, I extended the uterine incision laterally and superiorly using bandage scissors. Amniotomy was then performed using Allis clamp. Clear fluid was noted. The was found in vertex presentation. With gentle fundal pressure, the 's head was elevated up the incision, where the nares and oropharynx were bulb suctioned. Anterior and posterior shoulders were delivered. The infant was then brought out to the operative field with the cord fluid clamped and cut and infant was handed off to waiting nurses in attendance. Cord blood was collected, 3-vessel cord with intact placenta was delivered spontaneously thereafter. IV Pitocin was initiated to facilitate uterine contraction. Uterine fundus became firm by manual massage. The uterus was then exteriorized and cleared of all endometrial clots and debris. I then proceeded with closing the uterine incision using 0 Vicryl suture in a running locked fashion. Second layer of imbricating 0 Monocryl was placed. Excellent hemostasis was noted. We then placed the uterus back in the pelvis and copiously irrigated the pelvis using normal saline. Once again, there was no active bleeding noted from any of my dissection planes. I placed Interceed antiadhesive over my low transverse incision and proceeded with removing the Jerrell ring retractor and closing the peritoneum using 3-0 Vicryl suture in a running fashion. The rectus muscle was reapproximated using 3-0 Vicryl suture in an interrupted fashion. The fascia was reapproximated using 0 Vicryl suture in a running fashion. Subcutaneous tissue was reapproximated using 3-0 plain in interrupted subcutaneous stitch and skin was reapproximated using 4-0 Monocryl in a running subcuticular. Dermabond was applied to incision and sterile dressing was adhesed with white tape. The patient tolerated the procedure well and sent to recovery in a stable condition. Lap and sponge counts were correct at the end of the procedure. Instrument counts were correct as well. Two grams of Ancef were given preoperatively for infection prophylaxis. Job ID: [id number] DocumentID: [id number] Dictated Date: 10/26/2021 07:57:00 Observation Nurse Date: 10/26/2021 11:01:17 Dictated By: SUKHI MCGEE DO
[2021-10-26] MEDS: HYDROcodone/APAP 5 MG/325 MG (LORTAB) TAB PO PRN ×2 (11:30→19:53)
[2021-10-26] MEDS: KETOROLAC 30 MG/ML VIAL IV SCH ×3 (16:06→21:22)
[2021-10-26] MEDS: NS IV 1000 ML 1,000 ML IV SCH ×2 (18:00→21:14)
[2021-10-26] MEDS: CATHETER FLUSH 10 ML SYR IV SCH ×2 (20:51→22:00)
[2021-10-27] VITALS (14 sets, daily range): BP systolic 127–166; BP diastolic 71–98
[2021-10-27] MEDS: METOCLOPRAMIDE 10 MG (REGLAN) TAB PO SCH ×4 (01:20→21:53)
[2021-10-27] MEDS: KETOROLAC 30 MG/ML VIAL IV SCH (03:25)
[2021-10-27] MEDS: MAGNESIUM SULFATE DRIP 500 ML IV SCH (04:10)
[2021-10-27] MEDS: HYDROcodone/APAP 5 MG/325 MG (LORTAB) TAB PO PRN (05:53)
[2021-10-27] MEDS: NS IV 1000 ML 1,000 ML IV SCH (05:53)
[2021-10-27 06:15] LABS: BASOPHILS % (AUTO) 0 % (0-10); EOSINOPHILS % (AUTO) 0 % (0-10); HEMATOCRIT 25 % (35-52); HEMOGLOBIN 8.4 g/dL (11.5-16.0); LYMPHOCYTES # (AUTO) 0.9 10^3/uL (1.0-4.0); LYMPHOCYTES % (AUTO) 9 % (12-44); MEAN CORPUSCULAR HEMOGLOBIN 31 pg (25-34); MEAN CORPUSCULAR HGB CONC 34 g/dL (32-36); MEAN CORPUSCULAR VOLUME 92 fL (80-99); MONOCYTES # (AUTO) 0.6 10^3/uL (0.0-1.0); MONOCYTES % (AUTO) 6 % (0-12); NEUTROPHILS # (AUTO) 8.2 10^3/uL (1.8-7.8); NEUTROPHILS % (AUTO) 83 % (42-75); PLATELET COUNT 256 10^3/uL (130-400); WHITE BLOOD COUNT 9.9 10^3/uL (4.3-11.0)
[2021-10-27] MEDS: CATHETER FLUSH 10 ML SYR IV SCH (07:01)
[2021-10-27] MEDS: IBUPROFEN 600 MG (MOTRIN) TAB PO SCH ×3 (08:29→21:53)
[2021-10-27] MEDS: LABETALOL 200 MG (NORMODYNE) TAB PO SCH ×2 (08:29→21:53)
[2021-10-27] MEDS: DOCUSATE SODIUM 100 MG (COLACE) CAP PO SCH ×2 (08:29→21:53)
--- NOTE | 2021-10-27 10:14 | Postpartum Progress Note ---
Note Note Day # 1 Subjective: Patient is without complaints. Minimal ambulating since surgery, voiding. Tolerating a regular diet without nausea or vomiting. Normal lochia. Pain is well controlled with oral pain medications. Physical Exam: General - Alert and oriented, no apparent distress Abdomen - Soft, appropriately tender to palpation, non-distended, fundus firm at umbilicus; incision c/d/i Extremities - no edema, negative Corey's bilaterally Assessment: Post- day # 1, status post section Recovering well, hemodynamically stable Acute blood loss anemia Pre-eclampsia Plan: Routine care. Encourage breast feeding. Encourage ambulation. Ferrous sulfate supplementation. DC IV Magnesium Labetalol 400mg PO BID Plan for discharge tomorrow or Monday pending BP control Vitals - Labs Vital Signs - I&O Vital Signs Date Time Temp Pulse Resp B/P (MAP) Pulse Ox O2 Delivery O2 Flow Rate FiO2 10/27/21 08:00 36.2 77 18 163/96 (118) 95 Room Air 10/27/21 08:00 77 18 163/96 (118) 10/27/21 07:12 80 10/27/21 06:14 79 18 149/98 (115) 10/27/21 05:48 86 16 147/88 (107) 10/27/21 04:42 104 14 158/89 (112) 10/27/21 04:00 36.7 104 14 158/89 (112) 97 Room Air 10/27/21 03:19 81 14 162/88 (112) 10/27/21 02:19 78 18 152/84 (106) 10/27/21 01:14 75 18 140/80 (100) 10/27/21 00:52 72 10/27/21 00:00 36.7 75 16 127/71 (89) 97 Room Air 10/27/21 00:00 75 16 127/71 (89) 10/26/21 23:12 77 18 141/85 (103) 10/26/21 22:13 83 16 124/69 (87) 10/26/21 21:28 79 16 124/69 (87) 10/26/21 20:00 82 18 136/78 (97) 10/26/21 19:45 Room Air 10/26/21 19:00 78 10/26/21 19:00 76 18 122/71 (88) 96 Room Air 10/26/21 18:59 37.1 10/26/21 18:00 78 18 140/82 (101) 95 Room Air 10/26/21 17:03 78 16 115/74 (88) 10/26/21 17:00 73 18 128/77 (94) 94 Room Air 10/26/21 16:06 36.8 10/26/21 16:00 72 18 115/82 (93) 93 Room Air 10/26/21 15:23 100 Room Air 10/26/21 15:00 77 122/72 (89) Room Air 10/26/21 15:00 77 17 122/72 (89) 10/26/21 14:00 73 121/70 (87) Room Air 10/26/21 13:00 80 120/70 (87) Room Air 10/26/21 12:12 75 10/26/21 12:00 72 119/69 (86) Room Air 10/26/21 11:00 74 129/91 (104) Room Air I & O 10/27/21 06:59 Intake Total 1800 ml Output Total 3350 ml Balance -1550 ml Labs Laboratory Tests 10/27/21 05:50: White Blood Count 9.9, Red Blood Count 2.70L, Hemoglobin 8.4#L, Hematocrit 25L, Mean Corpuscular Volume 92, Mean Corpuscular Hemoglobin 31, Mean Corpuscular Hemoglobin Concent 34, Red Cell Distribution Width 15.2H, Platelet Count 256, Mean Platelet Volume 10.0, Immature Granulocyte % (Auto) 2, Neutrophils (%) (Auto) 83H, Lymphocytes (%) (Auto) 9L, Monocytes (%) (Auto) 6, Eosinophils (%) (Auto) 0, Basophils (%) (Auto) 0, Neutrophils # (Auto) 8.2H, Lymphocytes # (Auto) 0.9L, Monocytes # (Auto) 0.6, Eosinophils # (Auto) 0.0, Basophils # (Auto) 0.0, Immature Granulocyte # (Auto) 0.2H [employer]ATIVE Oct 27, 2021 10:14
--- NOTE | 2021-10-27 10:32 | Anesthesia-Regional Post-Op ---
Regional Patient Condition Mental Status: Alert, Oriented x3 Circulation: Same as Pre-Op Headache: Absent Sensation: Full Recovery Motor Block: Absent Post Op Complications Complications None Follow Up Care/Instructions Patient Instructions None needed. Anesthesia/Patient Condition Patient is doing well, no complaints, stable vital signs, no apparent adverse anesthesia problems. No complications reported per nursing. REGAN DEGROOT CRNA Oct 27, 2021 10:32
[2021-10-28] VITALS (8 sets, daily range): BP systolic 144–183; BP diastolic 69–86
[2021-10-28] MEDS: METOCLOPRAMIDE 10 MG (REGLAN) TAB PO SCH (04:51)
[2021-10-28] MEDS: IBUPROFEN 600 MG (MOTRIN) TAB PO SCH ×5 (04:52→23:12)
--- NOTE | 2021-10-28 08:41 | Postpartum Progress Note ---
Note Note Day # 2 Subjective: Patient is without complaints. Ambulating, voiding. Tolerating a regular diet without nausea or vomiting. Normal lochia. Pain is well controlled with oral pain medications. Objective: Physical Exam: General - Alert and oriented, no apparent distress Abdomen - Soft, appropriately tender to palpation, non-distended, fundus firm at umbilicus Extremities - no edema, negative Corey's bilaterally Assessment: POD 2 PLTCS PreE- labile BP pp Acute blood loss anemia Plan: Routine care. Adding Norvasc 5 mg to BP regimen Encourage breast feeding. Encourage ambulation. Ferrous sulfate supplementation. Plan for discharge today Vitals - Labs Vital Signs - I&O Vital Signs Date Time Temp Pulse Resp B/P (MAP) Pulse Ox O2 Delivery O2 Flow Rate FiO2 10/28/21 06:35 147/74 (98) 10/28/21 05:16 36.7 79 18 168/79 (108) 97 Room Air 10/28/21 01:15 153/78 (103) 10/27/21 21:53 36.6 87 18 166/79 (108) 96 Room Air 10/27/21 16:00 37.2 88 18 162/86 (111) 96 Room Air 10/27/21 12:45 80 18 153/98 (116) 95 Room Air 10/27/21 12:24 79 10/27/21 10:00 72 16 139/79 (99) 91 Room Air 10/27/21 09:00 66 18 156/83 (107) 90 Room Air I & O 10/28/21 07:00 Output Total 2500 ml Balance -2500 ml MASOUD CMGEE DO Oct 28, 2021 08:41
[2021-10-28] MEDS ORDERED: AMLO-250 PO (08:42)
[2021-10-28] MEDS ORDERED: LABE200T7 PO (08:42)
[2021-10-28] MEDS ORDERED: amLODIPine 5 MG (NORVASC) TAB PO SCH (09:00)
[2021-10-28] MEDS: LABETALOL 200 MG (NORMODYNE) TAB PO SCH ×2 (09:37→19:50)
[2021-10-28] MEDS: DOCUSATE SODIUM 100 MG (COLACE) CAP PO SCH ×2 (09:37→23:12)
[2021-10-28] MEDS ORDERED: amLODIPine 5 MG (NORVASC) TAB PO NR (16:00)
[2021-10-28] MEDS ORDERED: FUROSEMIDE 20 MG (LASIX) TAB PO ONE (19:15)
[2021-10-28] MEDS ORDERED: FUROSEMIDE 20 MG (LASIX) TAB ONE (23:08)
[2021-10-29] MEDS: IBUPROFEN 600 MG (MOTRIN) TAB PO SCH ×2 (06:16→13:23)
[2021-10-29 06:17] VITALS: BP 158/76
[2021-10-29 08:40] VITALS: BP 142/73
--- NOTE | 2021-10-29 08:53 | Postpartum Progress Note ---
Note Note Day # 3 Subjective: Patient is without complaints. Ambulating, voiding. Tolerating a regular diet without nausea or vomiting. Normal lochia. Pain is well controlled with oral pain medications. Physical Exam: General - Alert and oriented, no apparent distress Abdomen - Soft, appropriately tender to palpation, non-distended, fundus firm at umbilicus; incision c/d/i w/ecchymosis present Extremities - no edema, negative Corey's bilaterally Assessment: Post- day # 3, status post PLTCS Recovering well, hemodynamically stable Acute blood loss anemia Pre-eclampsia Plan: Routine care. Encourage breast feeding. Encourage ambulation. Continue Labetalol and Norvasc upon discharge Ferrous sulfate supplementation. Plan for discharge today Vitals - Labs Vital Signs - I&O Vital Signs Date Time Temp Pulse Resp B/P (MAP) Pulse Ox O2 Delivery O2 Flow Rate FiO2 10/29/21 06:17 36.9 71 18 158/76 (103) 96 Room Air 10/28/21 23:12 36.9 78 18 161/80 (107) 96 Room Air 10/28/21 18:00 36.3 80 18 175/79 (111) Room Air 10/28/21 15:30 97 18 183/86 (118) 10/28/21 12:49 36.8 84 18 144/69 (94) 98 Room Air 10/28/21 09:35 36.7 86 20 152/86 (108) Room Air JOHN MIKE APRN Oct 29, 2021 08:53
[2021-10-29] MEDS ORDERED: AMLO-251 PO (08:57)
[2021-10-29] MEDS ORDERED: amLODIPine 5 MG (NORVASC) TAB PO SCH (09:00)
[2021-10-29] MEDS: DOCUSATE SODIUM 100 MG (COLACE) CAP PO SCH (09:19)
[2021-10-29] MEDS: LABETALOL 200 MG (NORMODYNE) TAB PO SCH (09:19)
[2021-10-29 13:30] VITALS: BP 144/73
== END 2021-10-29 15:45 | disposition home or self-care (01) | DRG 787 ==
LOC: WSo 15:42 → LDRP 15:42 → WSo 18:26 → LDRP 10-26 10:12
PROVIDERS: ADMIT Family Medicine; ATTEND Family Medicine
PROC: 3E0DXGC Introduction of Other Therapeutic Substance into Mouth and Pharynx, External Approach (ICD-10-PCS; 2021-10-26)
PROC: 10D00Z1 Extraction of Products of Conception, Low, Open Approach (ICD-10-PCS; principal; 2021-10-26 07:13)
DX: O11.4 Pre-existing hypertension with pre-eclampsia, complicating childbirth (principal); D62 Acute posthemorrhagic anemia; O10.92 Unspecified pre-existing hypertension complicating childbirth; O31.13X0 Continuing pregnancy after spontaneous abortion of one fetus or more, third trimester, not applicable or unspecified; O32.0XX0 Maternal care for unstable lie, not applicable or unspecified; Z37.0 Single live birth; Z3A.35 35 weeks gestation of pregnancy; O60.14X0 Preterm labor third trimester with preterm delivery third trimester, not applicable or unspecified; O99.214 Obesity complicating childbirth; E66.01 Morbid (severe) obesity due to excess calories; G47.30 Sleep apnea, unspecified; O99.353 Diseases of the nervous system complicating pregnancy, third trimester; O90.81 Anemia of the puerperium; Z79.82 Long term (current) use of aspirin; Z82.49 Family history of ischemic heart disease and other diseases of the circulatory system
CPT/HCPCS: 36415; 80053; 82570; 83615; 84156; 84550; 85025; 85027; 86850; 86900; 86901; 94664